=== PATIENT | male | born 1970 | race Caucasian/White ===

== ENCOUNTER 2018-12-01 06:49 | Day surgery (SDC) | payer BC, SELFPAY ==
--- NOTE | 2018-11-29 08:31 | EKG12_ITS ---
Test Reason : PRE OP Blood Pressure : / mmHG Vent. Rate : 082 BPM Atrial Rate : 082 BPM P-R Int : 158 ms QRS Dur : 084 ms QT Int : 370 ms P-R-T Axes : 053 026 030 degrees QTc Int : 432 ms Normal sinus rhythm Normal ECG Confirmed by BRADY MONTALVO, VAISHNAVI ([id number]), photograph editor DARIAN PARISI ([id number]) on 11/30/2018 12:03:33 PM Referred By: Ian Camacho Confirmed By:VAISHNAVI ABREU MD
[2018-12-01] VITALS (7 sets, daily range): BP systolic 90–120; BP diastolic 56–78; PULSE 62–95; RESP 16; TEMP 36.2–36.8; O2SAT 93–99; BMI 31.3
[2018-12-01] MEDS: Lactated Ringers 1,000 ML 100 ML IV ×2 (07:34→09:21)
[2018-12-01] MEDS: Oxymetazoline 0.05% 1 SPRAY SPRAY.BTL 15 SPRAY (08:00)
--- NOTE | 2018-12-01 08:10 | SEP_PTH ---
PATIENT: RODNEY ROWE LOC: [facility] [place] U#:[id number] AGE/SX: 48/M ROOM: RE12/01/[address]: Ian Camacho MD : 1970 BED: DIS: 12/01/2018 SPEC #: [id number] RECD: 12/01/18 13:17 STATUS: ANNE CHRISTINE #: [id number] BRII: 12/01/18 08:[address]: Ian Camacho DEPT: SURGICAL PATHOLOGY RECD BY: Manish Millre ENTERED: 12/01/18 13:46 SP TYPE: SEPTUM OTHR DR: MD Dr. Saji Spencer III, MD Tissues: Nasal septum, NOS Procedures: Decalcification bone/plaque Surgery Specimen Level III HEADER OPERATION: Septoplasty, turbinate cautery PRE-OP DIAGNOSIS: Deviated nasal septum; nasal congestion; hypertrophy of nasal turbinate TISSUE SUBMITTED: Septal bone and cartilage MICROSCOPIC DIAGNOSIS Septal bone and cartilage, septoplasty: Benign fragments of hyaline cartilage and bone with benign respiratory epithelium and associated mild chronic inflammation (clinically deviated septum). AM:nancy 12/07/18 MICROSCOPIC DESCRIPTION Slides are reviewed. GROSS DESCRIPTION Received in fixative is one container labeled with the patient's name and designated septal bone and cartilage. The specimen consists of multiple fragments of cartilage and bone that in aggregate measure 2.5 x 2.5 x 0.3 cm. The entire specimen is submitted in one cassette after decalcification. / DURGA:nancy 12/01/18 TC:5 CPT: 26528, 07336
[2018-12-01] MEDS: Neomycin/Bacitracin/Polymyxin Ointment 1 APPLIC (08:28)
[2018-12-01] MEDS: Mixture 30 ML Bottle TOPICAL (08:51)
--- NOTE | 2018-12-01 09:06 | DCINST_ITS ---
You will use the following diet at home:: No restrictions Discharge Activity: Return to Normal Activity - rest, non vigorous activities. Do not blow nose. Sniff saline to rinse nose, several times per day. May use Afrin (every 12 hours) to reduce congested feeling and to reduce any oozing. Allergies/Adverse Reactions: Allergies No Known Allergies Allergy (Verified 12/01/18 07:20) Medications to take at Discharge Fluticasone 0.05% [Flonase Nasal [place]] 1 spray NASAL DAILY 11/24/18 Multivitamin [Multivitamins] 1 ea PO DAILY 11/24/18 Ranitidine [Zantac] 150 mg PO DAILY PRN 11/24/18 Orders to be completed after discharge: 12 Lead EKG [CVS] Time Frame: 11/24/18, Facility: [facility], Location: Cardiovascular Services Primary Care Physician: Saji Diaz III, MD [Primary Care Provider] - Test Results: Test results from this visit will be discussed in further detail at your follow- up appointment, if applicable. Please Follow Up With: Ian Camacho MD - call for appointment to remove splints in about 10-12 days.
[2018-12-01] MEDS: HYDROcodone Bitartrate/Apap 5/325 Tablet PO (10:37)
--- NOTE | 2018-12-01 10:46 | OP.PCM_ITS ---
Report of Operation Date of Procedure: 12/01/18 Pre-Operative Diagnosis: Nasal airway obstruction secondary to septal deformity and turbinate hypertrophy Post-Operative Diagnosis: Same Surgery/Procedure Performed:: Nasal septoplasty, therapeutic outfracture of inferior turbinates with subsequent submucosal cautery using Crow bipolar probe Type of Anesthesia:: General - Endotracheal Anesthesiologist: Tushar Hunter CRNA Estimated Blood Loss (mL): 25 Description of Procedure: The patient was transported to the operating room and placed on the OR table in the supine position. After the administration of adequate general endotracheal anesthesia the patient was appropriately positioned, eyes were treated and taped closed. A head drape was applied. The nasal cavity was inspected. Turbinate tissues were very hypertrophic and swollen and diminished with some topical Afrin spray. Cottonoid pledgets soaked in Josh-Synephrine Xylocaine mixture were then placed into the nasal chamber and additional time was allowed to elapse for vasoconstriction and decongestion. These were subsequently removed and the nasal cavity inspected. It was apparent that there was a large septal spur on the left side beginning at the chondro-osseous junction of the septum and progressing to the point of literally impaling the left inferior turbinate. The left nasal chamber was markedly obstructed by this deformity. The soft tissues of the turbinates did diminished reasonably well and the airway was improved substantially on the right side. 1% Xylocaine with epinephrine 1-100,000 was then used to infiltrate the columellar area of the septum as well as the soft tissues overlying the left side of the septum in the region of the spur. The inferior turbinates were also injected. After allowing additional time to elapse a right hemitransfixion incision was created with a #15 scalpel and the soft tissues were elevated from the quadrangular cartilage by dissecting in the subperichondrial plane using both [place] and [place] elevators. Just anterior to the chondro-osseous junction of [place] elevator was used to make an incision so that a posterior tunnel could be created on the right side of the perpendicular plate of the ethmoid. Having skeletonized this region including the spur, double-action scissors were used to make multiple cuts. The deflected segments were then extracted in pieces. The spur had such as sharp convexity to it that a mucosal tear did occur posteriorly. It would have been placed intentionally had it not occurred to allow egress of any fluids from the soft tissue flaps. The right hemitransfixion incision was then closed with 4-0 chromic. Each inferior turbinate was then laterally outfractured into the inferior meatus and treated with the Crow bipolar probe. The probe was placed into the anterior aspect of the turbinate and when current was applied and blanching occurred the probe was advanced the length of the turbinate. The inferomedial aspect of each turbinate received cautery as did the posterior tips. The latter was accomplished with benefit of the 0 degree endoscope. Some FloSeal material was coated along the posterior septal spur region on the left side where the mucosal tear had occurred. Hemostasis appeared to be satisfactory. Walker airway splints were then coated with antibiotic ointment and then placed into the nasal chamber and subsequently secured anteriorly with a single suture of 3-0 Ethilon. A nasal drip pad was applied and the procedure was terminated. Patient tolerated the procedure well, did not sustain any intraoperative anesthetic or surgical complication, was extubated in the operating room and taken to the PACU where he was noted to be in satisfactory condition. Ian Camacho MD
== END 2018-12-01 11:41 | disposition home or self-care (01) ==
LOC: SDC 06:56 → AC 06:56
PROVIDERS: Family Provider Family Medicine; PCP Family Medicine; Referring Provider Otolaryngology Otolaryngology/Facial Plastic Surgery; Visit Provider Otolaryngology Otolaryngology/Facial Plastic Surgery
PROC: (CPT 30520; principal; 2018-12-01 07:55)
DX: J34.2 Deviated nasal septum (principal); J34.89 Other specified disorders of nose and nasal sinuses; J34.3 Hypertrophy of nasal turbinates; K21.9 Gastro-esophageal reflux disease without esophagitis; Z87.891 Personal history of nicotine dependence
CPT/HCPCS: 30520; 30930; 88304; 88311; 93005; J7120; J2405

== ENCOUNTER 2020-05-17 08:00 | Outpatient (RCR) | payer BC, SELFPAY ==
[2018-12-01 07:21] VITALS: BMI 31.3
[2020-05-17] MEDS: COVID-19 VACC, MRNA(PFIZER)/PF 30 MCG/0.3 ML SYRINGE IM (15:19)
[2020-06-07] MEDS: COVID-19 VACC, MRNA(PFIZER)/PF 30 MCG/0.3 ML SYRINGE IM (14:58)
== END 2020-05-17 23:59 ==
LOC: IMMUN 08:00
PROVIDERS: PCP Family Medicine; Visit Provider Family Medicine
DX: Z23 Encounter for immunization (principal)
CPT/HCPCS: 0001A; 0002A; 91300

== ENCOUNTER 2020-09-22 03:41 | Observation (INO) | payer BC, SELFPAY ==
[2018-12-01 07:21] VITALS: BMI 31.3
[2020-09-22] VITALS (15 sets, daily range): BP systolic 108–169; BP diastolic 51–104; PULSE 78–99; RESP 16–18; TEMP 36.4–38; O2SAT 92–99; BMI 33.0
--- NOTE | 2020-09-22 | APP_PTH ---
PATIENT: RODNEY ROWE LOC: [facility] U#:[id number] AGE/SX: 50/M ROOM: [facility] [place] RE09/22/[address]: Dr. Olvin Foreman MD : 1970 BED: 1 DIS: 09/23/2020 SPEC #: [id number] RECD: 09/23/20 08:10 STATUS: ANNE CHRISTINE #: [id number] BRII: 09/22/20 00:[address]: Olvin Foreman DEPT: SURGICAL PATHOLOGY RECD BY: Fredy Montano ENTERED: 09/23/20 08:45 SP TYPE: APPENDIX OTHR DR: Dr. Saji Diaz III, MD Tissues: Appendix, NOS Procedures: Surgery Specimen Level III HEADER OPERATION: Laparoscopic appendectomy PRE-OP DIAGNOSIS: Acute appendicitis with localized peritonitis TISSUE SUBMITTED: Appendix MICROSCOPIC DIAGNOSIS Appendix, appendectomy: Acute necrotizing appendicitis. Acute serositis. AM:nancy 09/24/2020 MICROSCOPIC DESCRIPTION Slides are reviewed. GROSS DESCRIPTION Received in fixative is one container labeled with the patient's name and designated appendix. The specimen consists of an L-shaped appendix measuring 9 cm in length and up to 1 cm in diameter. The attached periappendiceal adipose tissue measures up to 2.5 cm in width. The serosa is congested. No obvious perforation is identified. The serosal surface is covered focally with hogan, purulent exudate. The lumen contains fecal material. No fecalith is identified. Maintenance Painter sections are submitted in one cassette. / DURGA:nancy 09/23/20 TC:2 CPT: 41974
--- NOTE | 2020-09-22 04:31 | ED.VIS.GI ---
HPI HPI - GI History of Present Illness Chief Complaint: Abd Pain Narrative Narrative: 50-year-old male presenting with right flank and abdominal pain. He states this started about at 8 PM last evening. Has been persistent. He complains of nausea and vomiting without diarrhea or constipation. He has not had a fever or chills. He denies history of kidney stones. He has history of abdominal surgery for ventral hernia repair. PFSH PFSH Home Medications fluticasone propionate 1 spray NASAL DAILY 11/24/18 [History Last Taken Unknown] Allergy/AdvReac Type Severity Reaction Status Date / Time No Known Allergies Allergy Verified 09/22/20 03:45 Surgical History H/O hernia repair Social History Smoking Status: Former smoker ROS ROS ED Constitutional Constitutional ED: Denies chills, fever(s) or sweats Eyes Eyes: Denies blurry vision or change in vision ENT ENT ED: Denies ear pain, rhinorrhea or sore throat Cardiovascular Cardiovascular: Denies chest pain, palpitations or racing heartbeat Respiratory/Chest Respiratory/Chest: Denies cough, dyspnea or sputum Gastrointestinal Gastrointestinal: Reports abdominal pain, nausea, vomiting and other Details: Right flank pain ; Denies constipation or diarrhea Genitourinary Genitourinary ED: Denies dysuria, hematuria or urinary frequency Musculoskeletal Musculoskeletal: Denies arthralgias, myalgias or neck pain Integumentary Denies abscess, Abrasions or rash Neurologic Neurologic: Denies headache(s), paresthesias or weakness Psychiatric Psychiatric: Denies anxiety, depression, suicidal ideation or suicidal thoughts Endocrine Endocrinology: Denies polydipsia or polyuria EXAM Physical Exam Const Vital Signs: 09/22/20 03:42 09/22/20 06:10 09/22/20 06:47 Temperature 99.0 F 99.1 F Temperature Source Temporal Oral Pulse Rate 89 98 Respiratory Rate 18 18 16 Blood Pressure 169/104 H 145/97 H Blood Pressure Mean 125 113 Blood Pressure Source Monitor Blood Pressure Position Supine Blood Pressure Location Left Arm Pulse Ox 97 95 Oxygen Delivery Method Room Air Room Air 09/22/20 07:06 Temperature 99.1 F Temperature Source Oral Pulse Rate 98 Respiratory Rate 16 Blood Pressure 145/97 H Blood Pressure Mean 113 Blood Pressure Source Blood Pressure Position Blood Pressure Location Pulse Ox 95 Oxygen Delivery Method Room Air Positive well nourished General Appearance ED: NAD; Negative for pallor HEENT Reports normocephalic, head/scalp atraumatic and moist mucous membranes normocephalic and atraumatic Eyes PERRL and EOMs intact bilaterally Neck no lymphadenopathy and supple Chest Wall inspection of chest normal and palpation of chest normal Resp normal respiratory effort and clear to auscultation bilaterally Auscultation: Negative for rales, rhonchi or wheezes Cardio regular rate and regular rhythm GI normal to inspection, nondistended, normoactive bowel sounds GI Narrative: Tenderness to palpation of the right upper quadrant without CVA tenderness. Negative Llanes sign. Narrative: Deferred Back/Spine no CVA tenderness Extremity normal to inspection Neuro oriented x3 and CN's II-XII intact bilaterally Sensorium / Orientation: alert Motor Exam: strength 5/5 throughout Psych mental status grossly normal Attitude: No agitated Skin no rashes or lesions noted and no wounds General Skin Exam: Negative for jaundice or pallor MDM MDM MDM Narrative Medical decision making narrative: Patient presenting with right-sided abdominal pain that has right CVA tenderness as well as right upper abdominal tenderness. There is a negative Llanes sign. Patient's lab work shows a leukocytosis of 12.0, hemoglobin and hematocrit are stable. Renal function and electrolytes are normal. LFTs are normal with exception of an AST of 66. Urinalysis has a small amount of occult blood. Will obtain CT of the abdomen pelvis without contrast. Patient is medicated with morphine, Zofran, Toradol. He is comfortable currently. Patient CT of the abdomen and pelvis shows a large appendicolith and appendicitis however he does not of the normal lie of or flex upward to the right flank and this is why he has the pain here. Patient was discussed with Dr. Foreman who will admit the patient for appendectomy. Patient given Zosyn in the ED. He has not required additional pain medication. Dr. Foreman did evaluate the patient and asked for an EKG to be performed for medical clearance. On my interpretation the EKG is sinus with a ventricular rate of [address] elevation or depression. There are no dysrhythmias. Impression: 1. Acute appendicitis Lab Data Attestation: I reviewed the patient's lab results. Labs: Laboratory Results - last 24 hr 09/22/20 09/22/20 09/22/20 04:05 04:05 04:05 WBC 12.0 H RBC 4.56 L Hgb 13.8 Hct 40.8 MCV 89.5 MCH 30.3 MCHC 33.8 RDW Std Deviation 39.6 RDW Coeff of Lindsay 12.0 Plt Count 235 MPV 9.2 Immature Gran % (Auto) 0.400 Neut % (Auto) 78.8 H Lymph % (Auto) 12.2 L Phillips % (Auto) 8.2 Eos % (Auto) 0.1 Baso % (Auto) 0.3 Absolute Neuts (auto) 9.4 H Absolute Lymphs (auto) 1.46 Nucleated RBC % 0 Sodium 138 Potassium 3.8 Chloride 105 Carbon Dioxide 28.0 Anion Gap 5 BUN 13 Creatinine 1.00 Estim Creat Clear Calc 99.16 Est GFR (MDRD) Af Amer 103 Est GFR (MDRD) Non-Af 85 BUN/Creatinine Ratio 13.1 Glucose 106 Calcium 9.0 Total Bilirubin 0.50 AST 26 ALT 66 H Alkaline Phosphatase 82 Total Protein 7.8 Albumin 3.8 Globulin 4.0 Albumin/Globulin Ratio 1.0 Lipase 92 Urine Color Yellow Urine Clarity Clear Urine pH 7.0 Ur Specific [place] 1.010 Urine Protein 15 H Urine Glucose (UA) Normal Urine Ketones Negative Urine Occult Blood 10 H Urine Nitrite Negative Urine Bilirubin Negative Urine Urobilinogen Normal Ur Leukocyte Esterase 25 H Urine RBC 0-5 SEEN Urine WBC 0 SEEN Ur Squamous Epith Cells 0 SEEN Urine Bacteria 0 SEEN Urine Mucus 1+ Radiography Diagnostic Testing: Radiology Impression Abdomen/Pelvis CT 09/22/20 05:22 IMPRESSION: Dilated appendix with periappendiceal stranding and appendicolith compatible with acute appendicitis. There is no free air or fluid collections identified. No hydronephrosis or nephrolithiasis. Other findings as above. Electronically Signed: Miguel Parker MD at 6:31 EDT Tel , Service support , ADDENDUM: 09/22/20 0641 IMPRESSION: Dilated appendix with periappendiceal stranding and appendicolith compatible with acute appendicitis. There is no free air or fluid collections identified. No hydronephrosis or nephrolithiasis. Other findings as above. N.B. : The above Results were Read Back by Miguel Parker MD to Dr. Breaux [id number], and understanding confirmed on 09/22/2020 06:34:40 (ET). Electronically Signed: Miguel Parker MD at 6:31 EDT Tel , Service support , Discharge Plan Triage Chief Complaint: Abd Pain ED Provider: Aly Shepard Dx/Rx/DC Orders Primary Care Provider: Saji Diaz III
[2020-09-22] MEDS: 0.9% Normal Saline 1,000 ML 1000 ML IV (04:49)
[2020-09-22] MEDS: Ondansetron 4 MG/2 ML Vial IV ×3 (04:49→19:57)
[2020-09-22 04:50] LABS: Bacteria 0 SEEN /hpf (None Seen); Squamous Epithelial Cells - UA 0 SEEN /hpf (0-5); White Blood Cells 0 SEEN /hpf (0-5)
[2020-09-22] MEDS: Morphine 4 MG/ML Syringe IV ×2 (04:50→07:00)
[2020-09-22 04:57] LABS: Absolute Lymphocyte Count 1.46 X10^3/uL (0.83-4.51); Absolute Neutrophil Count 9.4 X10^3/uL (2.0-7.7); Basophil# 0.04 X10^3/uL; Basophil% 0.3 % (0-1); Eosinophil# 0.01 X10^3/uL; Eosinophils% 0.1 % (0-5); Hematocrit 40.8 % (40-54); Hemoglobin 13.8 g/dL (13.0-16.5); Lymphocyte # 1.46 X10^3/ul (0.83-4.51); Lymphocyte % 12.2 % (19-41); Mean Corp Hgb Conc 33.8 g/dL (32-36); Mean Corpuscular Hgb 30.3 pg (27.0-32.0); Mean Corpuscular Volume 89.5 fL (80-94); Mean Platelet Vol. 9.2 fl (6.2-12.0); Monocyte# 0.98 X10^3/uL; Monocyte% 8.2 % (0-10); NRBC Flagged by Analyzer 0 % (0-5); Neutrophil # 9.44 X10^3/uL (2.7-7.7); Neutrophil % 78.8 % (47-70); Platelet Count 235 K/mm3 (150-450); RBC Distribution Width SD 39.6 fl (35.1-43.9); Red Blood Count 4.56 M/mm3 (4.6-6.2)
[2020-09-22 05:00] LABS: Color, Urine Yellow (Yellow); Glucose, Dipstick Normal (Normal); Ketone-Dipstick Negative (Negative); Leukocyte Esterase-Dipstick 25 /ul (Negative); Nitrite-Dipstick Negative (Negative); Occult Blood-Urine 10 /ul (Negative); Protein-Dipstick 15 mg/dl (Negative); Urine Bilirubin Dipstick Negative (Negative); Urine Clarity Clear (Clear); Urine Urobilinogen Normal (Normal)
[2020-09-22 05:05] LABS: AST(SGOT) 26 U/L (15-37); Alanine Aminotransfer ALT/SGPT 66 U/L (16-61); Albumin, Serum 3.8 g/dL (3.2-5.0); Alkaline Phosphatase 82 U/L (45-117); Anion Gap 5 (5-15); BUN 13 mg/dL (7-18); BUN/Creat Ratio 13.1 RATIO (10-20); Chloride 105 mmol/L (98-107); EST Glomerular Filtration Rate 85 mL/min (>60); Est Glom Filt Rate - Afr Amer 103 mL/min (>60); Estimated Creatinine Clearance 99.16 ml/min; Glucose 106 mg/dL (74-106); Lipase 92 U/L (73-393); Potassium 3.8 mmol/L (3.5-5.1); Protein, Total 7.8 g/dL (6.4-8.2); Sodium Level 138 mmol/L (136-145)
--- NOTE | 2020-09-22 05:22 | CT_ITS ---
We are attempting to reach an attending provider to discuss findings. An addendum with communication details will be sent when the communication is complete. STUDY: CT ABDOMEN AND PELVIS WITHOUT CONTRAST REASON FOR EXAM: Male, 50 years old. Right flank pain RADIATION DOSAGE (If Supplied By Facility): CTDIvol = ( 18.25 ) mGy, DLP = ( 975.77 ) mGycm TECHNIQUE: Transaxial images were obtained from the dome of the diaphragm to the symphysis pubis without oral contrast, and without intravenous contrast. Sagittal and coronal images were reconstructed. Individualized dose optimization techniques were used for this CT. COMPARISON: None. FINDINGS: Evaluation limited by lack of IV and oral contrast. The visualized lung bases are unremarkable. The visualized portions of the heart are within normal limits. Normal liver. Normal gallbladder and extrahepatic biliary system. Subcentimeter low-attenuation structures within the spleen are too small to characterize by CT criteria however statistically likely represent cysts or hemangiomas. Normal pancreas. Normal bilateral adrenal glands. Normal right kidney. Normal left kidney. Evaluation of bowel is limited by lack of IV and oral contrast. Dilated appendix 1 cm. There is adjacent stranding. There is a 1.1 x 0.7 cm appendicolith. There is no free air identified. No CT evidence for acute diverticulitis. No dilated loops of bowel by CT criteria. Small hiatal hernia. Gastric wall thickening correlate for gastritis versus underdistention. Metallic structure between the liver and stomach nonspecific. Correlate for any prior procedures. Otherwise foreign body be considered within the wall of the stomach. Normal abdominal aorta. Normal inferior vena cava. Nonspecific subcentimeter short axis mesenteric and retroperitoneal lymph nodes. Normal urinary bladder. Normal abdominal wall. There are diffuse degenerative changes of the visualized lumbar spine. CT/Abdomen/Pelvis without Cont IMPRESSION: Dilated appendix with periappendiceal stranding and appendicolith compatible with acute appendicitis. There is no free air or fluid collections identified. No hydronephrosis or nephrolithiasis. Other findings as above. Electronically Signed: Miguel Parker MD at 6:31 EDT Tel , Service support ,
[2020-09-22 05:32] LABS: Mucous, Urine 1+ /hpf (<or=2+); Red Blood Cells-Urine 0-5 SEEN /hpf (0-5)
[2020-09-22] MEDS: Ketorolac 15 MG/ML Vial IV (05:56)
--- NOTE | 2020-09-22 06:36 | EKG12_ITS ---
Test Reason : PRE-OP Blood Pressure : / mmHG Vent. Rate : 095 BPM Atrial Rate : 095 BPM P-R Int : 160 ms QRS Dur : 092 ms QT Int : 360 ms P-R-T Axes : 040 001 002 degrees QTc Int : 452 ms Normal sinus rhythm Normal ECG Confirmed by MARTITA MONTALVO, MAURICE ([id number]), editor school photograph BIENVENIDO DEGROOT ([id number]) on 09/24/2020 9:41:23 AM Referred By: TERRELL Confirmed By:MAURICE ANDERS MD
--- NOTE | 2020-09-22 07:06 | EX.PCM.CON.S ---
Assessment & Plan Assessment/Plan (1) Acute appendicitis: QUALIFIERS: Acute appendicitis type: with localized peritonitis Appendicitis abscess presence: without abscess Appendicitis gangrene presence: without gangrene Appendicitis perforation presence: without perforation Qualified Code(s): K35.30 - Acute appendicitis with localized peritonitis, without perforation or gangrene PLAN: Plan will be to perform a laparoscopic appendectomy on the patient. Risk benefits to include bleeding infection possible need for drain have been reviewed. Patient also understands that she can represent with symptoms similar to appendicitis which may represent a delayed abscess. In addition injury to surrounding structures were reviewed. She also understands blood clots heart attacks pneumonia strokes can be associated with general surgery. All questions asked were answered and she is willing to proceed. HPI Consult Data Date of Consult: 09/22/20 HPI Narrative HPI Narrative: RODNEY ROWE, is a 50 M who presents with right flank and abdominal pain. He states this started about at 8 PM last evening. Has been persistent. He complains of nausea and vomiting without diarrhea or constipation. He has not had a fever or chills. He denies history of kidney stones. He has history of abdominal surgery for ventral hernia repair. CT scan of the abdomen showed a retrocecal appendix with an appendicolith. There is no signs of abscess or perforation. [facility], [facility] Home Medications fluticasone propionate 1 spray NASAL DAILY 11/24/18 [History Last Taken Unknown] Allergy/AdvReac Type Severity Reaction Status Date / Time No Known Allergies Allergy Verified 09/22/20 03:45 Surgical History H/O hernia repair Social History Smoking Status: Former smoker ROS Constitutional Constitutional: Denies fever(s) Cardiovascular Cardiovascular: Denies chest pain, chest pain at rest, chest pain with activity or dyspnea Respiratory/Chest Respiratory/Chest: Denies cough, dyspnea or shortness of breath at rest Gastrointestinal Gastrointestinal: Reports abdominal pain, nausea and vomiting; Denies hematemesis or rectal bleeding Genitourinary Genitourinary: Denies change in urinary stream Physical Exam Const alert and oriented x3 General Appearance: cooperative HEENT normocephalic and head/scalp atraumatic Eyes PERRL and EOMs intact bilaterally Resp normal respiratory effort and clear to auscultation bilaterally Cardio Rate: regular rate Rhythm: regular rhythm GI Palpation: tender RLQ and McBurney's point; Negative for guarding or hernia Lab / Micro Data Result Diagrams: 09/22/20 04:05 09/22/20 04:05 Labs: Laboratory Results - last 24 hr 09/22/20 04:05: WBC 12.0 H, RBC 4.56 L, Hgb 13.8, Hct 40.8, MCV 89.5, MCH 30.3, MCHC 33.8, RDW Std Deviation 39.6, RDW Coeff of Lindsay 12.0, Plt Count 235, MPV 9.2, Immature Gran % (Auto) 0.400, Neut % (Auto) 78.8 H, Lymph % (Auto) 12.2 L, [place] % (Auto) 8.2, Eos % (Auto) 0.1, Baso % (Auto) 0.3, Absolute Neuts (auto) 9.4 H, Absolute Lymphs (auto) 1.46, Nucleated RBC % 0 09/22/20 04:05: Sodium 138, Potassium 3.8, Chloride 105, Carbon Dioxide 28.0, Anion Gap 5, BUN 13, Creatinine 1.00, Estim Creat Clear Calc 99.16, Est GFR (MDRD) Af Amer 103, Est GFR (MDRD) Non-Af 85, BUN/Creatinine Ratio 13.1, Glucose 106, Calcium 9.0, Total Bilirubin 0.50, AST 26, ALT 66 H, Alkaline Phosphatase 82, Total Protein 7.8, Albumin 3.8, Globulin 4.0, Albumin/Globulin Ratio 1.0, Lipase 92 09/22/20 04:05: Urine Color Yellow, Urine Clarity Clear, Urine pH 7.0, Ur Specific [place] 1.010, Urine Protein 15 H, Urine Glucose (UA) Normal, Urine Ketones Negative, Urine Occult Blood 10 H, Urine Nitrite Negative, Urine Bilirubin Negative, Urine Urobilinogen Normal, Ur Leukocyte Esterase 25 H, Urine RBC 0-5 SEEN, Urine WBC 0 SEEN, Ur Squamous Epith Cells 0 SEEN, Urine Bacteria 0 SEEN, Urine Mucus 1+ Radiology Impression Abdomen/Pelvis CT 09/22/20 05:22 IMPRESSION: Dilated appendix with periappendiceal stranding and appendicolith compatible with acute appendicitis. There is no free air or fluid collections identified. No hydronephrosis or nephrolithiasis. Other findings as above. Electronically Signed: Miguel Parker MD at 6:31 EDT Tel , Service support , ADDENDUM: 09/22/20 0641 IMPRESSION: Dilated appendix with periappendiceal stranding and appendicolith compatible with acute appendicitis. There is no free air or fluid collections identified. No hydronephrosis or nephrolithiasis. Other findings as above. N.B. : The above Results were Read Back by Miguel Parker MD to Dr. Breaux [id number], and understanding confirmed on 09/22/2020 06:34:40 (ET). Electronically Signed: Miguel Parker MD at 6:31 EDT Tel , Service support ,
--- NOTE | 2020-09-22 09:58 | OP.PCM_ITS ---
Problems Associated Problem List Diagnoses (1) Acute appendicitis: Report of Operation Date of Procedure: 09/22/20 Pre-Operative Diagnosis: Acute appendicitis Post-Operative Diagnosis: Same Surgery/Procedure Performed:: Laparoscopic appendectomy Surgeon: Olvin Foreman Type of Anesthesia: General Anesthesiologist: Ena Fernandez Specimen's removed: Appendix Estimated Blood Loss (mL): < 25 cc Description of Procedure: Patient was brought into the operating room. Placed in the supine position. Under excellent general tracheal ovation the abdomen was sterilely prepped and draped in usual fashion. Local was injected infraumbilically. Dissection was carried down to the fascia. The fascia was grasped with a [place]. Varies needle was placed inside the abdomen. The abdomen was insufflated to 15 torr. A 10/12 trocar was placed without difficulty. A suprapubic #5 trocar was placed, left lower quadrant #5 trocar was placed. Both of these under direct visualization without injury to underlying structures. Patient was placed in the headdown and rotated to the left position. Appendix was identified in a retrocecal fashion. Locally we were able to dissect the base of the appendix free. I transected this with a 45 linear cutter. I then used the Enseal coming down on the mesoappendix along the posterior aspect of the cecum and ascending colon. Placed the specimen in a specimen bag and delivered through the umbilical port. Irrigated the right lower quadrant there was one small bleeding vessel that identified which I controlled with the Enseal. The rest of the area there was raw there was no active bleeding going on. I irrigated this I retrieved the irrigant from the pelvis and the right upper quadrant. I ran the small bowel no Meckel's diverticulum was identified. I inspected the gallbladder no signs of acute cholecystitis and no fluid above the liver. I closed the fascia of the umbilical port with a grainy needle of 0 Vicryl and then put an extra Vicryl suture in the fascial edges. Trochars were removed without difficulty. Hemostasis was noted. Skin incisions were closed with subcuticular stitches of 4-0 Monocryl. Steri-Strips were applied sterile dressings were applied and the patient tolerated the procedure well. Admit VTE Documentation VTE Present on Admission: No VTE Mechan Device Prophylaxis: SCD's VTE Pharm Prophylaxis ordered?: No Reason prophylaxis not ordered:: Treatment Not Indicated
[2020-09-22] MEDS: Bupivacaine Mpf 0.5% 30 ML VIAL (10:02)
--- NOTE | 2020-09-22 10:11 | EX.PCM.DISCH ---
Discharge Instructions Procedure Appendectomy Diet Discharge Diet: Light diet - advance as tolerated (if you have questions about your diet instructions, please talk to you doctor.) Activity Discharge Activity: May Not Drive (for 3-5 days or while taking narcotic pain meds.) May shower in (days): 1 Dressing / Incision Call your doctor if your incision/area has: Continuous Slow Oozing, Sudden Increased Bleeding, Increased Pain/ Swelling, Increased Redness and Foul Smelling Discharge Call your doctor if you observe: Fever of 101 or Higher Suture Line Care: Avoid Pulling/Pushing and Avoid Pinching/Bending Additional Dressing/Incision Instructions:: Keep dressing clean and dry. Change or remove dressing in 2 days. Leave steri strips for 1 week. May protect with a gauze bandaid. Follow Up Care Please Follow Up With: Diana Tubbs PAJoseC When: Call office to schedule an appointment to be seen in 1 week. Test Results: Test results from this visit will be discussed in further detail at your follow-up appointment, if applicable. Discharge Plan Admission Attending Provider: Olvin Foreman Primary Care Provider: Saji Diaz III Discharge Orders/Prescriptions Prescriptions: No Action fluticasone propionate 1 SPRAY spray,suspension 1 spray NASAL DAILY RF: 0
[2020-09-22] MEDS: 0.9% Normal Saline 1,000 ML 75 ML IV (12:16)
[2020-09-22] MEDS: oxyCODONE 5 MG Tablet PO ×2 (13:34→20:11)
[2020-09-23 02:02] VITALS: BP 118/75; PULSE 89; RESP 18; TEMP 37.6; O2SAT 93
[2020-09-23] MEDS: oxyCODONE 5 MG Tablet PO ×2 (04:00→09:01)
--- NOTE | 2020-09-23 07:05 | PN.SURG_ITS ---
Subjective Subjective Doing well and feeling better this morning. Objective Data Objective Data Abdomen is soft dressings dry Vital Signs: Vital Signs Temp Pulse Resp BP Pulse Ox 99.7 F H 89 18 118/75 93 09/23/20 02:02 09/23/20 02:02 09/23/20 02:02 09/23/20 02:02 09/23/20 02:02 Oxygen Flow Rate (L/min) 3 Oxygen Delivery Method Room Air Weight: 243 lb 13.3 oz Body Mass Index (BMI) 33.0 Intake & Output: Intake and Output for Last 24 Hours 09/21/20 09/22/20 09/23/20 23:59 23:59 23:59 Intake Total 4002.5 / 4222.5 762.5 / 762.5 Balance 4002.5 / 4222.5 762.5 / 762.5 Lab / Micro Data Result Diagrams: 09/22/20 04:05 09/22/20 04:05 Micro: Microbiology 09/22/20 06:58 Mucosa - Nose SARS-CoV-2 Antigen (Rapid) - Final Assessment & Plan Assessment/Plan (1) Acute appendicitis: QUALIFIERS: Acute appendicitis type: with localized peritonitis Appendicitis gangrene presence: without gangrene Appendicitis perforation presence: without perforation Appendicitis abscess presence: without abscess Qualified Code(s): K35.30 - Acute appendicitis with localized peritonitis, wi thout perforation or gangrene PLAN: Will DC later after next dose of antibiotics given
--- NOTE | 2020-09-23 07:34 | NURSING ---
Dr. Foreman is aware that Zosyn is infusing at this time and will be done around 10am this moring. Dr. Foreman okay with leaving after the current zosyn infusing is finished.
[2020-09-23 08:00] VITALS: BP 143/86; PULSE 77; RESP 18; TEMP 36.9; O2SAT 98
== END 2020-09-23 10:15 | disposition home or self-care (01) ==
LOC: ED 04:55 → SDC 07:10 → MS3 07:34 → SDC 11:07 → MS3 11:08
PROVIDERS: Admitting Provider Surgery; Emergency Provider Student in an Organized Health Care Education/Training Program; PCP Family Medicine; Visit Provider Surgery
PROC: 0DTJ4ZZ Resection of Appendix, Percutaneous Endoscopic Approach (ICD-10-PCS; CPT 44970; principal; 2020-09-22 09:00)
DX: K35.30 Acute appendicitis with localized peritonitis, without perforation or gangrene (principal); Z87.891 Personal history of nicotine dependence
CPT/HCPCS: 44970; 74176; 80053; 81001; 83690; 85025; 87070; 87075; 87077; 87186; 87205; 87426; 88304; 93005; 96361; 96365; 96366; 96375; 96376; 99218; 99283; J7030; A4216; C1760; G0378; J2405